=== PATIENT | female | born 1960 | race Caucasian/White ===

== ENCOUNTER 2019-02-09 19:39 | Emergency (ER) | payer OTHER ==
[~2019-02-09] VITALS: Ht 152.4 cm; Wt 81.7 kg
[2019-02-09 20:25] LABS: BASOPHILS ABSOLUTE AUTO 0.08 K/mm3 (0.00-0.23); BASOPHILS PERCENT AUTO 1 % (0-2); EOSINOPHILS ABSOLUTE AUTO 0.17 K/mm3 (0.00-0.68); EOSINOPHILS PERCENT AUTO 2 % (0-6); Hemoglobin 15.6 g/dL (11.5-16.0); IMMATURE GRAN ABSOLUTE AUTO 0.03 K/mm3 (0.00-0.10); IMMATURE GRAN PERCENT AUTO 0 % (0-1); LYMPHOCYTES ABSOLUTE AUTO 1.53 K/mm3 (0.84-5.20); LYMPHOCYTES PERCENT AUTO 15 % (21-46); MONOCYTES ABSOLUTE AUTO 0.91 K/mm3 (0.16-1.47); MONOCYTES PERCENT AUTO 9 % (4-13); Mean Corpuscular HGB 31.6 pg (26.0-34.0); Mean Corpuscular HGB Conc 32.5 g/dL (31.5-36.5); Mean Corpuscular Volume 97 fL (80-100); Mean Platelet Volume 9.8 fL (9.1-12.4); NEUTROPHILS ABSOLUTE AUTO 7.85 K/mm3 (1.96-9.15); NEUTROPHILS PERCENT AUTO 74 % (41-73); Platelet Count 229 K/mm3 (150-400); RDW Coefficient Variation 13.2 % (11.7-14.2); Red Blood Cell Count 4.94 M/mm3 (3.80-5.20); White Blood Cell Count 10.57 K/mm3 (4.00-11.30)
[2019-02-09 20:38] LABS: Alanine Aminotransfer (ALT/SGP 36 U/L (12-78); Albumin, Blood 3.8 g/dL (3.4-5.0); Alk Phos 86 U/L (50-136); Anion Gap 8 mmol/L (6-16); Aspartate Aminotrans (AST/SGOT 30 U/L (12-37); Bilirubin, Total 0.3 mg/dL (0.1-1.0); Blood Urea Nitrogen 12 mg/dL (8-24); Bun/Creatinine Ratio 15.9 (12.0-20.0); CO2, Blood 26 mmol/L (21-32); Calcium, Blood 9.2 mg/dL (8.5-10.1); Chloride, Blood 106 mmol/L (98-108); Creatinine, Blood 0.76 mg/dL (0.40-1.00); Glomerular Filtration Rate >60 (60-); Glucose, Blood 133 mg/dL (70-99); Potassium, Blood 4.1 mmol/L (3.5-5.5); Sodium, Blood 140 mmol/L (136-145); Total Protein, Blood 7.8 g/dL (6.4-8.2)
[2019-02-09 20:51] LABS: Source, Urine Clean Catch
[2019-02-09 20:54] LABS: Bilirubin, Urine Neg (Neg); Blood, Urine 5+ (Neg); Glucose Qualitative, Urine Neg (Neg); Ketones, Urine 1+ (Neg); Leukocyte Esterase, Urine 2+ (Neg); Nitrite, Urine Neg (Neg); Protein, Urine 2+ (Neg); Urobilinogen, Urine NORM (Normal)
[2019-02-09 20:57] LABS: Appearance, Urine Cloudy (Clear); Color, Urine Red (P-Yellow)
[2019-02-09 21:10] LABS: Amorphous Light (0-Heavy); Bacteria Few /hpf; Red Blood Cells, Urine TNTC /hpf (0-2); Squamous Epithelial Cells Not Seen /hpf (Few)
[2019-02-09] MEDS ORDERED: Flomax0.4 MG PO (22:47)
[2019-02-09] MEDS ORDERED: Percocet 7.5-31 EACH PO (22:47)
[2019-02-09] MEDS ORDERED: CEFP200 PO (22:47)
== END 2019-02-09 23:30 | disposition home or self-care (01) ==
LOC: ER 19:39
PROVIDERS: Emergency Medicine
DX: N13.2 Hydronephrosis with renal and ureteral calculous obstruction (principal); R00.0 Tachycardia, unspecified; F17.210 Nicotine dependence, cigarettes, uncomplicated; Z88.5 Allergy status to narcotic agent; Z88.8 Allergy status to other drugs, medicaments and biological substances
CPT/HCPCS: 74177; 80053; 81001; 83690; 85025; 87086; 93005; 93010; 96361; 96365-59; 96375; 99284-25; A9270; J0696; J1885; J2405; J3010; J7030; P9612; Q9967

== ENCOUNTER 2019-02-11 09:49 | Emergency (ER) | payer OTHER ==
[~2019-02-11] VITALS: Ht 152.4 cm; Wt 77.1 kg
[~2019-02-11 09:49] MED LIST: CEFP200 PO; Flomax0.4 MG PO; Percocet 7.5-31 EACH PO
[2019-02-11] MEDS ORDERED: IBUP400 PO (10:37)
[2019-02-11] MEDS ORDERED: Percocet 5-3251 EACH PO (10:37)
[2019-02-11] MEDS ORDERED: Zofran8 MG PO (10:37)
== END 2019-02-11 10:57 | disposition home or self-care (01) ==
LOC: ER 09:49
DX: N13.2 Hydronephrosis with renal and ureteral calculous obstruction (principal); F17.210 Nicotine dependence, cigarettes, uncomplicated; Z88.5 Allergy status to narcotic agent; Z88.8 Allergy status to other drugs, medicaments and biological substances; Z79.899 Other long term (current) drug therapy
CPT/HCPCS: 99283

== ENCOUNTER 2020-06-13 09:32 | Emergency (ER) | payer OTHER ==
[~2020-06-13] VITALS: Ht 152.4 cm; Wt 90.7 kg
[~2020-06-13 09:32] MED LIST changes: +IBUP400 PO; +Percocet 5-3251 EACH PO; +Zofran8 MG PO
[2020-06-13 10:32] LABS: BASOPHILS ABSOLUTE AUTO 0.07 K/mm3 (0.00-0.23); BASOPHILS PERCENT AUTO 1 % (0-2); EOSINOPHILS ABSOLUTE AUTO 0.09 K/mm3 (0.00-0.68); EOSINOPHILS PERCENT AUTO 1 % (0-6); Hematocrit 45.9 % (33.0-51.0); Hemoglobin 15.2 g/dL (11.5-16.0); IMMATURE GRAN ABSOLUTE AUTO 0.03 K/mm3 (0.00-0.10); IMMATURE GRAN PERCENT AUTO 0 % (0-1); LYMPHOCYTES ABSOLUTE AUTO 1.47 K/mm3 (0.84-5.20); LYMPHOCYTES PERCENT AUTO 20 % (21-46); MONOCYTES ABSOLUTE AUTO 0.66 K/mm3 (0.16-1.47); MONOCYTES PERCENT AUTO 9 % (4-13); Mean Corpuscular HGB 31.1 pg (26.0-34.0); Mean Corpuscular HGB Conc 33.1 g/dL (31.5-36.5); Mean Corpuscular Volume 94 fL (80-100); Mean Platelet Volume 9.2 fL (9.1-12.4); NEUTROPHILS PERCENT AUTO 69 % (41-73); Platelet Count 237 K/mm3 (150-400); RDW Standard Deviation 48.4 fL (35.1-46.3); Red Blood Cell Count 4.89 M/mm3 (3.80-5.20); White Blood Cell Count 7.52 K/mm3 (4.00-11.30)
[2020-06-13 10:52] LABS: Alanine Aminotransfer (ALT/SGP 123 U/L (12-78); Albumin, Blood 3.7 g/dL (3.4-5.0); Alk Phos 84 U/L (50-136); Anion Gap 6 mmol/L (6-16); Aspartate Aminotrans (AST/SGOT 98 U/L (12-37); Bilirubin, Total 0.6 mg/dL (0.1-1.0); Blood Urea Nitrogen 12 mg/dL (8-24); CO2, Blood 26 mmol/L (21-32); Calcium, Blood 9.2 mg/dL (8.5-10.1); Chloride, Blood 108 mmol/L (98-108); Globulin, Blood 3.8 g/dL (2.2-4.0); Glomerular Filtration Rate >60 (60-); Glucose, Blood 105 mg/dL (70-99); Sodium, Blood 140 mmol/L (136-145); Total Protein, Blood 7.5 g/dL (6.4-8.2); Troponin I 0.058 ng/mL (0.000-0.040)
[2020-06-13 11:42] LABS: Influenza A, PCR Negative (NEGATIVE); Influenza B, PCR Negative (NEGATIVE); Resp Syncytial Virus, PCR Negative (NEGATIVE); SARS-Cov-2 (COVID-19) PCR, MMC Negative (NEGATIVE)
[2020-06-13] MEDS ORDERED: AZIT250 PO (13:56)
[2020-06-13] MEDS ORDERED: AMLO5 PO (13:56)
== END 2020-06-13 14:31 | disposition home or self-care (01) ==
LOC: ER 09:32
PROVIDERS: Emergency Medicine
DX: J44.1 Chronic obstructive pulmonary disease with (acute) exacerbation (principal); I10 Essential (primary) hypertension; F17.210 Nicotine dependence, cigarettes, uncomplicated; Z20.822 Contact with and (suspected) exposure to COVID-19
CPT/HCPCS: 0241U; 36415; 71045; 80053; 83880; 84484; 85025; 93005; 93010; 94640; 96374; 99284-25; A9270; J0360

== ENCOUNTER 2020-07-03 17:02 | Inpatient (IN) | payer OTHER, SELFPAY ==
[~2020-07-03] VITALS: Ht 160 cm; Wt 83.0 kg
[~2020-07-03 17:02] MED LIST changes: +AMLO5 PO; +AZIT250 PO
[2020-07-03 17:28] LABS: BASOPHILS ABSOLUTE AUTO 0.11 K/mm3 (0.00-0.23); BASOPHILS PERCENT AUTO 1 % (0-2); EOSINOPHILS ABSOLUTE AUTO 0.19 K/mm3 (0.00-0.68); EOSINOPHILS PERCENT AUTO 2 % (0-6); Hematocrit 50.4 % (33.0-51.0); IMMATURE GRAN ABSOLUTE AUTO 0.03 K/mm3 (0.00-0.10); IMMATURE GRAN PERCENT AUTO 0 % (0-1); LYMPHOCYTES ABSOLUTE AUTO 3.78 K/mm3 (0.84-5.20); LYMPHOCYTES PERCENT AUTO 42 % (21-46); MONOCYTES ABSOLUTE AUTO 1.16 K/mm3 (0.16-1.47); MONOCYTES PERCENT AUTO 13 % (4-13); Mean Corpuscular HGB 31.6 pg (26.0-34.0); Mean Corpuscular HGB Conc 31.7 g/dL (31.5-36.5); Mean Corpuscular Volume 100 fL (80-100); Mean Platelet Volume 9.6 fL (9.1-12.4); NEUTROPHILS ABSOLUTE AUTO 3.78 K/mm3 (1.96-9.15); NEUTROPHILS PERCENT AUTO 42 % (41-73); Platelet Count 260 K/mm3 (150-400); RDW Coefficient Variation 15.1 % (11.7-14.2); RDW Standard Deviation 54.9 fL (35.1-46.3); Red Blood Cell Count 5.06 M/mm3 (3.80-5.20); White Blood Cell Count 9.05 K/mm3 (4.00-11.30)
[2020-07-03 17:35] LABS: PCO2 Arterial 50.9 mmHg (35-45); PO2 Arterial 80.9 mmHg (80-100); pH Blood Arterial 7.26 (7.35-7.45)
[2020-07-03 17:47] LABS: Alanine Aminotransfer (ALT/SGP 132 U/L (12-78); Albumin, Blood 3.7 g/dL (3.4-5.0); Albumin/Globulin Ratio 0.8 (0.8-1.8); Alk Phos 103 U/L (50-136); Anion Gap 6 mmol/L (6-16); Aspartate Aminotrans (AST/SGOT 99 U/L (12-37); Bilirubin, Total 0.6 mg/dL (0.1-1.0); Blood Urea Nitrogen 10 mg/dL (8-24); Bun/Creatinine Ratio 17.1 (12.0-20.0); CO2, Blood 23 mmol/L (21-32); Calcium, Blood 9.2 mg/dL (8.5-10.1); Chloride, Blood 108 mmol/L (98-108); Creatinine, Blood 0.58 mg/dL (0.40-1.00); Globulin, Blood 4.5 g/dL (2.2-4.0); Glomerular Filtration Rate >60 (60-); Glucose, Blood 210 mg/dL (70-99); Potassium, Blood 4.2 mmol/L (3.5-5.5); Sodium, Blood 137 mmol/L (136-145); Total Protein, Blood 8.2 g/dL (6.4-8.2); Troponin I 0.019 ng/mL (0.000-0.040)
[2020-07-03] MEDS ORDERED: AMLODIPINE BESYL5 MG PO (18:11)
[2020-07-03 18:25] LABS: Influenza A, PCR NEGATIVE (NEGATIVE); Influenza B, PCR NEGATIVE (NEGATIVE); Resp Syncytial Virus, PCR NEGATIVE (NEGATIVE); SARS-Cov-2 (COVID-19) PCR, MMC NEGATIVE (NEGATIVE)
[2020-07-03 19:57] LABS: Source, Urine Catheter
[2020-07-03 20:03] LABS: Appearance, Urine Turbid (Clear); Bilirubin, Urine Neg (Neg); Blood, Urine 1+ (Neg); Color, Urine Amber (P-Yellow); Glucose Qualitative, Urine Neg (Neg); Ketones, Urine 1+ (Neg); Leukocyte Esterase, Urine 1+ (Neg); Nitrite, Urine Pos (Neg); Protein, Urine 3+ (Neg); Specific Gravity, Urine 1.025 (1.003-1.022); Urobilinogen, Urine NORM (Normal)
[2020-07-03 20:07] LABS: Amorphous Heavy (0-Heavy); Bacteria Many /hpf; Red Blood Cells, Urine 0-2 /hpf (0-2); Squamous Epithelial Cells Few /hpf (Few)
[2020-07-04 00:56] LABS: BASOPHILS ABSOLUTE AUTO 0.01 K/mm3 (0.00-0.23); BASOPHILS PERCENT AUTO 0 % (0-2); EOSINOPHILS PERCENT AUTO 0 % (0-6); Hematocrit 45.2 % (33.0-51.0); Hemoglobin 14.6 g/dL (11.5-16.0); IMMATURE GRAN ABSOLUTE AUTO 0.02 K/mm3 (0.00-0.10); IMMATURE GRAN PERCENT AUTO 0 % (0-1); LYMPHOCYTES ABSOLUTE AUTO 0.39 K/mm3 (0.84-5.20); LYMPHOCYTES PERCENT AUTO 7 % (21-46); MONOCYTES ABSOLUTE AUTO 0.07 K/mm3 (0.16-1.47); MONOCYTES PERCENT AUTO 1 % (4-13); Mean Corpuscular HGB 32.1 pg (26.0-34.0); Mean Corpuscular HGB Conc 32.3 g/dL (31.5-36.5); Mean Corpuscular Volume 99 fL (80-100); Mean Platelet Volume 8.9 fL (9.1-12.4); NEUTROPHILS PERCENT AUTO 91 % (41-73); Platelet Count 219 K/mm3 (150-400); RDW Coefficient Variation 14.9 % (11.7-14.2); RDW Standard Deviation 55.3 fL (35.1-46.3); Red Blood Cell Count 4.55 M/mm3 (3.80-5.20); White Blood Cell Count 5.69 K/mm3 (4.00-11.30)
[2020-07-04 01:16] LABS: Anion Gap 7 mmol/L (6-16); Blood Urea Nitrogen 14 mg/dL (8-24); Bun/Creatinine Ratio 20.7 (12.0-20.0); CO2, Blood 24 mmol/L (21-32); Chloride, Blood 108 mmol/L (98-108); Creatinine, Blood 0.68 mg/dL (0.40-1.00); Glomerular Filtration Rate >60 (60-); Glucose, Blood 193 mg/dL (70-99); Potassium, Blood 4.1 mmol/L (3.5-5.5); Sodium, Blood 139 mmol/L (136-145); Troponin I 0.035 ng/mL (0.000-0.040)
--- NOTE | 2020-07-04 07:46 | NUR ---
ADMIT NOTE/SHIFT SUMMARY PATIENT ADMITTED FROM THE ER EARLIER THIS SHIFT. PATIENT ON BIPAP AT TIME OF ADMIT. PATIENT PLEASENT AND COOPERATIVE. PATIENT REPORTS THAT HER BREATHING IS BETTER THAN WHEN SHE ARRIVED AT THE ER. PATIENT WAS SETTLED IN AND ORIENTED TO THE ROOM, UNIT, AND CALL LIGHT. PATIENT ABLE TO BE OFF THE BIPAP FOR APPROX 1.5 HOURS SHORTLY AFTER ADMIT AND WAS PLACED ON 4L O2. PATIENT THEN WENT BACK ON THE BIPAP AND APPEARED TO SLEEP WELL THROUGHOUT MOST OF THE REST OF THE NIGHT. PATIENT REMOVED FROM BIPAP AT ABOUT 0600 THIS MORNING PER PATIENT REQUEST AND HAS BEEN OFF SINCE. PATIENT ON 4L O2 WHEN OFF BIPAP. CONTINUOUS BIOX IN PLACE. REPORT GIVEN TO ZABRINA GEIGER.
--- NOTE | 2020-07-04 16:54 | NUR ---
SHIFT SUMMARY PT TRANSFERRED TO UNIT FROM PCU AT APPROXIMATELY 1230. PT IS AOX4. PT DENIES PAIN, N/V, SOB. PT IS INDEPENDENT IN ROOM. PT IS CURRENTLY ON ROOM AIR WITH SATS IN THE 88-92%. PT HAD IMAGING DONE WHILE ON THE PCU UNIT. PT HAS A GOOD APPETITE THIS JOVANNY. PT HAD A VISITOR TODAY. PT IS IN BED, CALL LIGHT IN REACH, BED IN LOW POSITION.
--- NOTE | 2020-07-05 04:15 | NUR ---
SHIFT SUMMARY NO ACUTE CHANGES THIS SHIFT, NO C/O ANY KIND, SLEPT T/O THE NIGHT & SLEEPING AT THIS TIME, CALL LIGHT IN REACH, WILL CONT TO MONITOR UNTIL REPORT GIVEN TO DAY RN.
[2020-07-05 04:42] LABS: BASOPHILS ABSOLUTE AUTO 0.03 K/mm3 (0.00-0.23); BASOPHILS PERCENT AUTO 0 % (0-2); EOSINOPHILS ABSOLUTE AUTO 0.01 K/mm3 (0.00-0.68); EOSINOPHILS PERCENT AUTO 0 % (0-6); Hematocrit 45.8 % (33.0-51.0); Hemoglobin 14.7 g/dL (11.5-16.0); IMMATURE GRAN ABSOLUTE AUTO 0.03 K/mm3 (0.00-0.10); IMMATURE GRAN PERCENT AUTO 0 % (0-1); LYMPHOCYTES ABSOLUTE AUTO 1.48 K/mm3 (0.84-5.20); LYMPHOCYTES PERCENT AUTO 15 % (21-46); MONOCYTES ABSOLUTE AUTO 0.86 K/mm3 (0.16-1.47); MONOCYTES PERCENT AUTO 9 % (4-13); Mean Corpuscular HGB Conc 32.1 g/dL (31.5-36.5); Mean Corpuscular Volume 100 fL (80-100); Mean Platelet Volume 8.9 fL (9.1-12.4); NEUTROPHILS ABSOLUTE AUTO 7.54 K/mm3 (1.96-9.15); NEUTROPHILS PERCENT AUTO 76 % (41-73); Platelet Count 232 K/mm3 (150-400); RDW Coefficient Variation 15.1 % (11.7-14.2); RDW Standard Deviation 55.4 fL (35.1-46.3); Red Blood Cell Count 4.59 M/mm3 (3.80-5.20); White Blood Cell Count 9.95 K/mm3 (4.00-11.30)
[2020-07-05 05:08] LABS: Alanine Aminotransfer (ALT/SGP 93 U/L (12-78); Albumin/Globulin Ratio 0.8 (0.8-1.8); Alk Phos 77 U/L (50-136); Anion Gap 5 mmol/L (6-16); Aspartate Aminotrans (AST/SGOT 54 U/L (12-37); Bilirubin, Total 0.6 mg/dL (0.1-1.0); Blood Urea Nitrogen 21 mg/dL (8-24); CO2, Blood 28 mmol/L (21-32); Calcium, Blood 9.3 mg/dL (8.5-10.1); Chloride, Blood 107 mmol/L (98-108); Creatinine, Blood 0.72 mg/dL (0.40-1.00); Globulin, Blood 3.9 g/dL (2.2-4.0); Glomerular Filtration Rate >60 (60-); Glucose, Blood 104 mg/dL (70-99); Sodium, Blood 140 mmol/L (136-145); Total Protein, Blood 6.9 g/dL (6.4-8.2)
[2020-07-05] MEDS ORDERED: ACET325 PO (15:14)
[2020-07-05] MEDS ORDERED: AZIT250 PO (15:16)
[2020-07-05] MEDS ORDERED: FOLI1 PO (15:17)
[2020-07-05] MEDS ORDERED: DILT120ERA PO (15:17)
[2020-07-05] MEDS ORDERED: LOSA25 PO (15:17)
[2020-07-05] MEDS ORDERED: B-1100 M1 PO (15:21)
[2020-07-05] MEDS ORDERED: AMOCLA500 PO (15:22)
[2020-07-05] MEDS ORDERED: VISBIOME PROBI1 EACH PO (15:22)
[2020-07-05] MEDS ORDERED: ALBU90OI INH (15:22)
[2020-07-05] MEDS ORDERED: FURO40 PO (15:23)
[2020-07-05] MEDS ORDERED: FLUTICASONE-SA1 EAC1 INH (15:23)
--- NOTE | 2020-07-05 16:29 | NUR ---
DISCHARGE NOTE PATIENT DISCHARGED TO HOME. PATIENT ALERT AND ORIENTED THIS SHIFT. PATIENT WITHOUT RESPIRATORY DISTRESS THIS SHIFT. PATIENT UP INDEPENDENTLY IN THE ROOM THIS SHIFT. PATIENT HAD AN O2 EVALUATION FOR ACTIVITY PRIOR TO DISCHARGE, NO O2 NEEDS AT THIS TIME. PATIENT'S DAUGHTER IN THE ROOM PRIOR TO DISCHARGE. PATIENT AND DAUGHTER PROVIDED WITH DISCHARGE INSTRUCTIONS, NO QUESTIONS AT THIS TIME. PATIENT DRESSED INDEPENDENTLY. IVs REMOVED PRIOR TO DISCHARGE. PATIENT TO VEHICLE VIA WHEELCHAIR BY NURSE.
== END 2020-07-05 16:24 | disposition home or self-care (01) | DRG 280 ==
LOC: ER 17:02 → PCU 20:11 → MEDS 20:11 → PCU 21:20 → MEDS 07-04 12:33
PROVIDERS: Emergency Medicine; Internal Medicine; ADMIT Family Medicine
PROC: 5A09457 Assistance with Respiratory Ventilation, 24-96 Consecutive Hours, Continuous Positive Airway Pressure (ICD-10-PCS; principal; 2020-07-03)
DX: I11.0 Hypertensive heart disease with heart failure (principal); I50.31 Acute diastolic (congestive) heart failure; I21.A1 Myocardial infarction type 2; J96.01 Acute respiratory failure with hypoxia; J96.02 Acute respiratory failure with hypercapnia; J44.1 Chronic obstructive pulmonary disease with (acute) exacerbation; E87.2 Acidosis; I16.1 Hypertensive emergency; J81.1 Chronic pulmonary edema; Z20.822 Contact with and (suspected) exposure to COVID-19; F10.10 Alcohol abuse, uncomplicated; R82.71 Bacteriuria; I34.0 Nonrheumatic mitral (valve) insufficiency; F17.210 Nicotine dependence, cigarettes, uncomplicated
CPT/HCPCS: 0241U; 36415; 36600; 51702; 71045; 71260; 74177; 80048; 80053; 81001; 82803; 83036; 83605; 83690; 83880; 84145; 84443; 84484; 85025; 87077; 87086; 87186; 93005; 93010; 93306; 94660; 94762; 96374-59; 99291-25; A9270; J0696; J1650; J1940; J7050; Q9967

== ENCOUNTER → 2021-09-26 | Outpatient (CLI) | payer OTHER ==
[~2021-09-26] MED LIST changes: +ACET325 PO; +ALBU90OI INH; +AMLODIPINE BESYL5 MG PO; +AMOCLA500 PO; +B-1100 M1 PO; +DILT120ERA PO; +FLUTICASONE-SA1 EAC1 INH; +FOLI1 PO; +FURO40 PO; +LOSA25 PO; +VISBIOME PROBI1 EACH PO
[2021-09-28 16:08] LABS: HPV 16 Negative (Negative); HPV 18 Negative (Negative); HPV OTHER HR TYPES Negative (Negative)
== END | disposition home or self-care (01) ==
LOC: LAB SHORT 12:45 → LAB 12:45
PROVIDERS: Family Medicine
DX: Z01.419 Encounter for gynecological examination (general) (routine) without abnormal findings (principal)
CPT/HCPCS: 87624; G0145

== ENCOUNTER 2022-10-20 17:09 | Inpatient (IN) | payer OTHER ==
[~2022-10-20] VITALS: Ht 152.4 cm; Wt 65.5 kg
[~2022-10-20 17:09] MED LIST changes: +ELIQUIS5 M2 PO; +LOSA50 PO; +OMEP20ER; +PANT40 PO; +PRAVASTATIN SOD10 MG PO; +SUCR1 PO; +TRAZ50 PO
[2022-10-20 21:33] LABS: BASOPHILS ABSOLUTE AUTO 0.06 K/mm3 (0.00-0.23); BASOPHILS PERCENT AUTO 1 % (0-2); EOSINOPHILS ABSOLUTE AUTO 0.14 K/mm3 (0.00-0.68); EOSINOPHILS PERCENT AUTO 2 % (0-6); Hematocrit 40.6 % (33.0-51.0); Hemoglobin 14.4 g/dL (11.5-16.0); IMMATURE GRAN ABSOLUTE AUTO 0.03 K/mm3 (0.00-0.10); IMMATURE GRAN PERCENT AUTO 0 % (0-1); LYMPHOCYTES ABSOLUTE AUTO 1.75 K/mm3 (0.84-5.20); LYMPHOCYTES PERCENT AUTO 23 % (21-46); MONOCYTES ABSOLUTE AUTO 1.07 K/mm3 (0.16-1.47); MONOCYTES PERCENT AUTO 14 % (4-13); Mean Corpuscular HGB 33.7 pg (26.0-34.0); Mean Corpuscular HGB Conc 35.5 g/dL (31.5-36.5); Mean Corpuscular Volume 95 fL (80-100); Mean Platelet Volume 8.7 fL (9.1-12.4); NEUTROPHILS ABSOLUTE AUTO 4.54 K/mm3 (1.96-9.15); NEUTROPHILS PERCENT AUTO 60 % (41-73); Platelet Count 219 K/mm3 (150-400); RDW Coefficient Variation 13.2 % (11.7-14.2); RDW Standard Deviation 46.3 fL (35.1-46.3); Red Blood Cell Count 4.27 M/mm3 (3.80-5.20); White Blood Cell Count 7.59 K/mm3 (4.00-11.30)
[2022-10-20 21:51] LABS: Albumin, Blood 3.3 g/dL (3.4-5.0); Albumin/Globulin Ratio 0.8 (0.8-1.8); Bilirubin, Total 0.3 mg/dL (0.1-1.0); Bun/Creatinine Ratio 15.2 (12.0-20.0); Creatinine, Blood 0.46 mg/dL (0.40-1.00); Globulin, Blood 3.9 g/dL (2.2-4.0); Potassium, Blood 3.8 mmol/L (3.5-5.5); Total Protein, Blood 7.2 g/dL (6.4-8.2)
[2022-10-21 00:38] LABS: International Normalized Ratio 1.28; Prothrombin Time Results 13.3 Sec (9.7-11.5)
[2022-10-21] MEDS ORDERED: TIOT18 INH (02:11)
[2022-10-21 02:44] VITALS: BP 171/90
--- NOTE | 2022-10-21 03:27 | NUR ---
CODEINE ALLERGY PT STATES SHE HAS HAD NORCO AND VICODIN BEFORE WILL NO COMPLICATIONS.
--- NOTE | 2022-10-21 04:02 | NUR ---
SHIFT SUMMARY PT ADMISSION DONE, RESTING IN BED, NS @ 75ML/HR. FACIAL SWELLING STILL PRESENT, BUT PT STATES BETTER PAIN CONTROL. BED IN LOWEST POSITION , CALL LIGHT WITHIN REACH. REPORT GIVEN TO TWIN GEIGER.
[2022-10-21 04:47] LABS: BASOPHILS ABSOLUTE AUTO 0.05 K/mm3 (0.00-0.23); BASOPHILS PERCENT AUTO 1 % (0-2); EOSINOPHILS ABSOLUTE AUTO 0.11 K/mm3 (0.00-0.68); EOSINOPHILS PERCENT AUTO 2 % (0-6); Hematocrit 38.7 % (33.0-51.0); Hemoglobin 13.7 g/dL (11.5-16.0); IMMATURE GRAN ABSOLUTE AUTO 0.03 K/mm3 (0.00-0.10); IMMATURE GRAN PERCENT AUTO 1 % (0-1); LYMPHOCYTES ABSOLUTE AUTO 1.22 K/mm3 (0.84-5.20); LYMPHOCYTES PERCENT AUTO 19 % (21-46); MONOCYTES PERCENT AUTO 19 % (4-13); Mean Corpuscular HGB 33.7 pg (26.0-34.0); Mean Corpuscular HGB Conc 35.4 g/dL (31.5-36.5); Mean Corpuscular Volume 95 fL (80-100); Mean Platelet Volume 8.5 fL (9.1-12.4); NEUTROPHILS ABSOLUTE AUTO 3.85 K/mm3 (1.96-9.15); NEUTROPHILS PERCENT AUTO 60 % (41-73); Platelet Count 203 K/mm3 (150-400); RDW Coefficient Variation 13.2 % (11.7-14.2); RDW Standard Deviation 46.4 fL (35.1-46.3); Red Blood Cell Count 4.07 M/mm3 (3.80-5.20); White Blood Cell Count 6.46 K/mm3 (4.00-11.30)
--- NOTE | 2022-10-21 05:03 | NUR ---
ASSUMED CARE REPORT TAKEN TO ASSUME CARE OF PT. PT IS RESTING IN BED APPEARS TO BE SLEEP. NO DISTRESS NOTED. PT MEDICATED FOR PAIN SHORTLY BEFORE I RECEIVED REPORT. IVF INFUSING, CALL LIGHT WITHIN REACH.
[2022-10-21 05:06] LABS: Albumin, Blood 3.2 g/dL (3.4-5.0); Bilirubin, Total 0.7 mg/dL (0.1-1.0); Creatinine, Blood 0.56 mg/dL (0.40-1.00); Globulin, Blood 3.2 g/dL (2.2-4.0); Potassium, Blood 3.7 mmol/L (3.5-5.5); Total Protein, Blood 6.4 g/dL (6.4-8.2)
[2022-10-21 05:51] VITALS: BP 149/63
[2022-10-21 07:35] VITALS: BP 164/87
[2022-10-21 14:59] VITALS: BP 154/99
--- NOTE | 2022-10-21 18:22 | NUR ---
SHIFT SUMMARY PT A&OX4, VSS/RA, YESSICA PO, VOIDING, AMB W/FWW AND SBA/BED ALARM ON, PAIN MANAGED WITH TORADOL, ABX PER EMAR. WILL REPORT TO ONCOMING NOC RN.
[2022-10-21 20:01] VITALS: BP 130/79
[2022-10-22 04:31] LABS: BASOPHILS ABSOLUTE AUTO 0.01 K/mm3 (0.00-0.23); BASOPHILS PERCENT AUTO 0 % (0-2); EOSINOPHILS PERCENT AUTO 0 % (0-6); Hematocrit 39.5 % (33.0-51.0); Hemoglobin 14.1 g/dL (11.5-16.0); IMMATURE GRAN ABSOLUTE AUTO 0.06 K/mm3 (0.00-0.10); IMMATURE GRAN PERCENT AUTO 1 % (0-1); LYMPHOCYTES ABSOLUTE AUTO 0.64 K/mm3 (0.84-5.20); LYMPHOCYTES PERCENT AUTO 8 % (21-46); MONOCYTES ABSOLUTE AUTO 0.49 K/mm3 (0.16-1.47); MONOCYTES PERCENT AUTO 6 % (4-13); Mean Corpuscular HGB 33.9 pg (26.0-34.0); Mean Corpuscular HGB Conc 35.7 g/dL (31.5-36.5); Mean Corpuscular Volume 95 fL (80-100); Mean Platelet Volume 8.9 fL (9.1-12.4); NEUTROPHILS PERCENT AUTO 86 % (41-73); Platelet Count 207 K/mm3 (150-400); RDW Coefficient Variation 12.8 % (11.7-14.2); RDW Standard Deviation 44.6 fL (35.1-46.3); Red Blood Cell Count 4.16 M/mm3 (3.80-5.20)
[2022-10-22 04:52] LABS: Albumin, Blood 3.1 g/dL (3.4-5.0); Albumin/Globulin Ratio 0.8 (0.8-1.8); Bilirubin, Total 0.6 mg/dL (0.1-1.0); Bun/Creatinine Ratio 24.5 (12.0-20.0); Calcium, Blood 9.3 mg/dL (8.5-10.1); Creatinine, Blood 0.49 mg/dL (0.40-1.00); Globulin, Blood 3.7 g/dL (2.2-4.0); Potassium, Blood 3.8 mmol/L (3.5-5.5); Total Protein, Blood 6.8 g/dL (6.4-8.2)
[2022-10-22 06:17] VITALS: BP 172/109
[2022-10-22 06:45] VITALS: BP 171/99
[2022-10-22 07:21] VITALS: BP 178/102
--- NOTE | 2022-10-22 07:43 | NUR ---
PT HAD UNEVENTFUL NIGHT. CIWA 7, PT MEDICATED PER EMAR W/NOTED EFFECT. SWELLING TO RIGHT JAW MILD, PT REP SHE IS ABLE TO OPEN MOUTH WIDER THIS AM, REP MOUTH LESS PAINFUL. PT DECLINED NEED FOR PAIN MEDS. PT REPORT FEELING ANXIOUS AND AGITATED AFTER SOLUMEDEROL GIVEN, REP FEELIND LESS ANXIOUS THIS AM. PT UP OOB W/FWW+SBA, IS STEADY WHEN UP; BED ALARM ON FOR SAFETY. IV ABX CONT PER ORDERS.
[2022-10-22] MEDS ORDERED: CHLO25 PO (13:33)
[2022-10-22] MEDS ORDERED: HYDR1TAB94 PO (13:34)
[2022-10-22] MEDS ORDERED: CLIN150 PO (13:34)
[2022-10-22] MEDS ORDERED: METPRE4 PO (13:35)
--- NOTE | 2022-10-22 13:57 | NUR ---
DISCHARGE PT AMBULATING WELL IN ROOM. DENIES PAIN. REPORTS JAW MOVEMENT MUCH IMPROVED. ABLE TO EAT WITHOUT DIFFICULTY. PT VERY ANXIOUS WHILE HERE PT VERY ADAMANT ABOUT DISCHARGING TODAY. PT PULLED IV PRIOR TO DISCHARGE. PRESCRIPTIONS SENT TO [facility] AND HARD SCRIPTS SENT WITH PATIENT.
== END 2022-10-22 13:59 | disposition home or self-care (01) | DRG 158 ==
LOC: ER 17:09 → SURS 23:30
PROVIDERS: Internal Medicine; Student in an Organized Health Care Education/Training Program; ADMIT Internal Medicine
DX: K04.7 Periapical abscess without sinus (principal); I48.20 Chronic atrial fibrillation, unspecified; L02.01 Cutaneous abscess of face; L03.211 Cellulitis of face; I50.32 Chronic diastolic (congestive) heart failure; J45.909 Unspecified asthma, uncomplicated; K02.9 Dental caries, unspecified; F41.9 Anxiety disorder, unspecified; J44.9 Chronic obstructive pulmonary disease, unspecified; I11.0 Hypertensive heart disease with heart failure; E78.5 Hyperlipidemia, unspecified; F10.20 Alcohol dependence, uncomplicated; K21.9 Gastro-esophageal reflux disease without esophagitis; G47.00 Insomnia, unspecified; F17.210 Nicotine dependence, cigarettes, uncomplicated; Z98.890 Other specified postprocedural states; Z86.010 Personal history of colon polyps; Z88.5 Allergy status to narcotic agent; Z88.8 Allergy status to other drugs, medicaments and biological substances; Z79.01 Long term (current) use of anticoagulants; Z79.899 Other long term (current) drug therapy; Z87.19 Personal history of other diseases of the digestive system
CPT/HCPCS: 36415; 41800; 70487; 80053; 85025; 85610; 94640; 94664; 94760; 96365-59; 96375-59; 99285-25; A9270; J0295; J0696; J1885; J2060; J2930; J3010; J3411; J7030; Q9967; S0077

== ENCOUNTER 2022-10-31 23:46 | Inpatient (IN) | payer OTHER ==
[~2022-10-31] VITALS: Ht 152.4 cm; Wt 68.1 kg
[~2022-10-31 23:46] MED LIST changes: +CHLO25 PO; +CLIN150 PO; +HYDR1TAB94 PO; +METPRE4 PO; +TIOT18 INH
[2022-11-01] VITALS (9 sets, daily range): BP systolic 101–127; BP diastolic 51–110
[2022-11-01 00:28] LABS: BASOPHILS ABSOLUTE AUTO 0.06 K/mm3 (0.00-0.23); BASOPHILS PERCENT AUTO 1 % (0-2); EOSINOPHILS PERCENT AUTO 3 % (0-6); Hematocrit 41.6 % (33.0-51.0); Hemoglobin 14.5 g/dL (11.5-16.0); IMMATURE GRAN ABSOLUTE AUTO 0.02 K/mm3 (0.00-0.10); IMMATURE GRAN PERCENT AUTO 0 % (0-1); LYMPHOCYTES ABSOLUTE AUTO 2.24 K/mm3 (0.84-5.20); LYMPHOCYTES PERCENT AUTO 29 % (21-46); MONOCYTES ABSOLUTE AUTO 1.13 K/mm3 (0.16-1.47); MONOCYTES PERCENT AUTO 15 % (4-13); Mean Corpuscular HGB Conc 34.9 g/dL (31.5-36.5); Mean Corpuscular Volume 98 fL (80-100); Mean Platelet Volume 8.9 fL (9.1-12.4); NEUTROPHILS ABSOLUTE AUTO 4.04 K/mm3 (1.96-9.15); NEUTROPHILS PERCENT AUTO 53 % (41-73); Platelet Count 208 K/mm3 (150-400); RDW Coefficient Variation 14.2 % (11.7-14.2); RDW Standard Deviation 50.9 fL (35.1-46.3); Red Blood Cell Count 4.26 M/mm3 (3.80-5.20); White Blood Cell Count 7.69 K/mm3 (4.00-11.30)
[2022-11-01] MEDS ORDERED: B-1100 M1 PO (00:38)
[2022-11-01] MEDS ORDERED: FLUTICASONE-SA1 EAC9 INH (00:39)
[2022-11-01] MEDS ORDERED: DILTIAZEM 24HR180 M3 PO (00:39)
[2022-11-01 00:57] LABS: Calcium, Blood 8.8 mg/dL (8.5-10.1); Creatinine, Blood 0.69 mg/dL (0.40-1.00); Magnesium, Blood 2.1 mg/dL (1.6-2.4); Potassium, Blood 3.8 mmol/L (3.5-5.5)
[2022-11-01 05:03] LABS: BASOPHILS ABSOLUTE AUTO 0.06 K/mm3 (0.00-0.23); BASOPHILS PERCENT AUTO 1 % (0-2); EOSINOPHILS ABSOLUTE AUTO 0.18 K/mm3 (0.00-0.68); EOSINOPHILS PERCENT AUTO 3 % (0-6); Hematocrit 40.7 % (33.0-51.0); Hemoglobin 14.2 g/dL (11.5-16.0); IMMATURE GRAN ABSOLUTE AUTO 0.03 K/mm3 (0.00-0.10); IMMATURE GRAN PERCENT AUTO 0 % (0-1); LYMPHOCYTES ABSOLUTE AUTO 2.42 K/mm3 (0.84-5.20); LYMPHOCYTES PERCENT AUTO 33 % (21-46); MONOCYTES ABSOLUTE AUTO 1.01 K/mm3 (0.16-1.47); MONOCYTES PERCENT AUTO 14 % (4-13); Mean Corpuscular HGB 34.1 pg (26.0-34.0); Mean Corpuscular HGB Conc 34.9 g/dL (31.5-36.5); Mean Corpuscular Volume 98 fL (80-100); Mean Platelet Volume 8.8 fL (9.1-12.4); NEUTROPHILS ABSOLUTE AUTO 3.54 K/mm3 (1.96-9.15); NEUTROPHILS PERCENT AUTO 49 % (41-73); Platelet Count 199 K/mm3 (150-400); RDW Coefficient Variation 14.3 % (11.7-14.2); RDW Standard Deviation 51.6 fL (35.1-46.3); Red Blood Cell Count 4.16 M/mm3 (3.80-5.20); White Blood Cell Count 7.24 K/mm3 (4.00-11.30)
[2022-11-01 05:44] LABS: Bun/Creatinine Ratio 13.9 (12.0-20.0); Calcium, Blood 8.7 mg/dL (8.5-10.1); Creatinine, Blood 0.65 mg/dL (0.40-1.00); Potassium, Blood 4.4 mmol/L (3.5-5.5)
--- NOTE | 2022-11-01 06:04 | NUR ---
SHIFT SUMMARY PT IS A NEW ADMIT THIS MORNING FOR AFIB/AFLUTTER RVR. SHE IS A&OX4, CAN MAKE HER NEEDS KNOWN, AND FOLLOWS QUESTIONS APPROPRAITELY. THIS PT IS ON A CARDIZEM GTT @ 5 AND HER HR IS 90'S-110'S. WHEN SHE MOVES AROUND SHE HER HR CAN JUMP TO THE 150'S. SHE DENIES ANY ANGINA OR CHEST PRESSURE. SHE IS ON RA W/O SOB, AND HER SP02 >93%. PT STATES SHE IS FEELING ALOT BETTER SINCE COMING TO THE HOSPITAL AND IS ALREADY ASKING ABOUT DISCHARGE. PT REPORTED THAT SHE HAS BEEN HAVING BLACK LOOSE STOOLS FOR ABOUT A WEEK AND HER PCP STOPPED HER ELIQUIS TWO DAYS AGO AND STARTED HER ON IMODIUM. PT STATES SHE HAS HAD FIVE LOOSE BOWEL MOVMENTS YESTERDAY. STOOL SAMPLE ORDER OBTAINED. SHE IS A DAILY DRINKER ABOUT 12 BEERS/DAY, W/ HER LAST DRINK LAST NIGHT. HER CIWA IS CURRENTLY 1. BED ALARM IS ON, BED IS IN LOW, AND CALL LIGHT IS IN REACH. SEE NOTES FOR ANY UPDATES.
--- NOTE | 2022-11-01 09:00 | NUR ---
PT SUSTAINING IN THE 110'S. REINITIATED HER CARDIZEM DRIP AT 5. TELE AWARE AND PT EDUCATED ON REINITATION.
--- NOTE | 2022-11-01 09:57 | NUR ---
CARDIZEM TITRATED UP TO 10ML/HR. PT UP AND ACTIVE IN ROOM
--- NOTE | 2022-11-01 10:45 | NUR ---
ASSUMPTION OF CARE AT THIS TIME
--- NOTE | 2022-11-01 10:47 | NUR ---
Patient is lying in bed and alert. She immediately becomes tearful when I introduce myself. She tells me that she wants to go home. We unpack this concern and disscuss the importance of becoming well before she she leaves the hospital. She explains about the grief sabino has from the of her SO of 17 yrs ( 5 yrs ago). She talks about an estrangement from one of her three grown children and connection to God through music and nature. She is tearful again when she describes her craving for a cigarette and is struggle that it is for her at the time of the visit. (I mention this to patient's BROILER CHEF OR COOK because her RN is not available at that time). I provide grief support, anxiety containment, therapeutic listening and prayer. Patient responds well and shows signs of an elevated mood and greater peace. I will continue to remain available to patient and family.
--- NOTE | 2022-11-01 14:27 | NUR ---
UPDATE WHILE THIS RN ON LUNCH PT BEGAME AGITATED AND PULLED OFF TELEMETRY. ANGRY AND WANTING TO GO HOME. CIWA 3. MD NOTIFIED OF PT'S REQUEST. PA AT BEDSIDE AT THIS TIME CONSULTING WITH PT. PLAN TO GIVE ATIVAN FOR ANXIETY PER MD. WILL CONT TO MONITOR.
--- NOTE | 2022-11-01 18:09 | NUR ---
SHIFT SUMMARY PT ALERT AND ORIENTED X 4. PT AGITATED AND THREATENING TO LEAVE AMA. PA AT BEDSIDE TO DISCUSS PT STATUS. SEE EMAR. HR NOT WELL CONTROLLED WITH PO MEDICATIONS. CARDIZEM GTT RESUMED. SEE EHR FOR SETTINGS. HR AFIB 110'S-140'S. CIWA STABLE AND A 3. PT REPORTS NO WD SYMPTOMS. PT MEDICATED WITH ONE MG OF ATIVAN PER MD ORDER FOR ANXIETY AND AGITATION. NO CP OR PRESSURE REPORTED. BP STABLE. PT SBA TO BATHROOM. CALL SHADI OVERTON. WILL CONT TO MONITOR UNTIL REPORT GIVEN TO NIGHTSHIFT RN.
--- NOTE | 2022-11-01 21:58 | NUR ---
ASSUMED CARE @ 1915 PATIENT SITTING IN BED QUIETLY. CARDIZEM INF @ 5MG/HR. MONITOR SHOWS AFIB FLUTTER WITH RATE 70'S. BP STABLE. PATIENT DENIES PAIN, BUT STATES SHE FEELS DEPRESSED AND WANTS TO GO HOME. EXPLAINED TO PATIENT THAT SHE HAS A RIGHT TO LEAVE, BUT PROVIDED EDUCATION ON WHY SHE SHOULD STAY. ULTIMATELY, THE PATIENT AGREED TO STAY. CARDIZEM TURNED OFF AT 2030. RATE REMAINS 71BPM. PATIENT VERBALIZED FEELING ANXIOUS AND REQUESTED ATIVAN TO HELP CALM ANXIETY AND AGITATION. CALL MADE TO DR. COLMENARES AND ONE TIME ORDER OBTAINED FOR ATIVAN 1MG IV.
[2022-11-02 04:08] LABS: BASOPHILS ABSOLUTE AUTO 0.05 K/mm3 (0.00-0.23); BASOPHILS PERCENT AUTO 1 % (0-2); EOSINOPHILS ABSOLUTE AUTO 0.14 K/mm3 (0.00-0.68); EOSINOPHILS PERCENT AUTO 3 % (0-6); Hematocrit 41.7 % (33.0-51.0); Hemoglobin 14.4 g/dL (11.5-16.0); IMMATURE GRAN ABSOLUTE AUTO 0.01 K/mm3 (0.00-0.10); IMMATURE GRAN PERCENT AUTO 0 % (0-1); LYMPHOCYTES ABSOLUTE AUTO 1.45 K/mm3 (0.84-5.20); LYMPHOCYTES PERCENT AUTO 28 % (21-46); MONOCYTES ABSOLUTE AUTO 0.85 K/mm3 (0.16-1.47); MONOCYTES PERCENT AUTO 17 % (4-13); Mean Corpuscular HGB 33.9 pg (26.0-34.0); Mean Corpuscular HGB Conc 34.5 g/dL (31.5-36.5); Mean Corpuscular Volume 98 fL (80-100); Mean Platelet Volume 8.7 fL (9.1-12.4); NEUTROPHILS ABSOLUTE AUTO 2.65 K/mm3 (1.96-9.15); NEUTROPHILS PERCENT AUTO 51 % (41-73); Platelet Count 203 K/mm3 (150-400); RDW Coefficient Variation 14.2 % (11.7-14.2); RDW Standard Deviation 51.4 fL (35.1-46.3); Red Blood Cell Count 4.25 M/mm3 (3.80-5.20); White Blood Cell Count 5.15 K/mm3 (4.00-11.30)
[2022-11-02 04:32] VITALS: BP 98/73
[2022-11-02 04:49] LABS: Albumin, Blood 2.9 g/dL (3.4-5.0); Albumin/Globulin Ratio 0.9 (0.8-1.8); Bilirubin, Total 0.6 mg/dL (0.1-1.0); Bun/Creatinine Ratio 17.4 (12.0-20.0); Calcium, Blood 9.3 mg/dL (8.5-10.1); Creatinine, Blood 0.63 mg/dL (0.40-1.00); Globulin, Blood 3.4 g/dL (2.2-4.0); Total Protein, Blood 6.3 g/dL (6.4-8.2)
--- NOTE | 2022-11-02 05:06 | NUR ---
SHIFT SUMMARY PATIENT SLEPT THROUGHOUT SHIFT AFTER RECEIVING ATIVAN 1MG IV FOR ANXIETY. PATIENT DENIED ANXIETY ON REASSESSMENTS. CIWA'S 0-3. CARDIZEM WAS OFF FOR APPROXIMATELY 8 HOURS WITH RATE MAINTAINING BELOW 110. CARDIZEM RESTARTED WHEN HR ABOVE 120. BP REMAINS STABLE. NO OTHER CHANGES DURING SHIFT.
[2022-11-02 07:53] VITALS: BP 136/86
[2022-11-02 10:50] VITALS: BP 137/85
[2022-11-02] MEDS ORDERED: SERT50 PO (10:57)
[2022-11-02] MEDS ORDERED: Naltrexone HCl50 MG PO (10:57)
--- NOTE | 2022-11-02 11:36 | NUR ---
DISCHARGE SUMMARY PT A/O X4, COOPERATIVE WITH CARE. ANXIOUS TO DISCHARGE T/O THE MORNING. PT OFF DILTIAZEM DRIP DURING AM REPORT THIS MORNING DUE TO MEDICATION RUNNING OUT. HR IN THE 90-100'S, SO THIS RN LEFT DILTIAZEM DRIP OFF. PT HR STABLE T/O MAJORITY OF MORNING WITH OCCASIONAL INCREASE WITH ACTIVITY UP TO THE 130'S. PT DENIED CP OR SOB. PT REQUESTING TO AMBULATE AND TOLERATED IT WELL. SHE REMAINED ASYMPTOMATIC AFTER AMBULATING. SPO2 >92% ON RA. LUNGS WERE CLEAR T/O. UPON DISCHARGE PT REQUESTED TO AMBULATE OUT OF ROOM. SHE WAS ACCOMPANIED BY S/O. PT VERBALIZED UNDERSTANDING OF DISCHARGE INSTRUCTIONS. PT D/C'D @ 2267.
== END 2022-11-02 11:38 | disposition home or self-care (01) | DRG 310 ==
LOC: ER 23:46 → PCU 23:47 → ER 23:47 → PCU 11-01 03:55
PROVIDERS: Family Medicine; Student in an Organized Health Care Education/Training Program; ADMIT Student in an Organized Health Care Education/Training Program
PROC: HZ2ZZZZ Detoxification Services for Substance Abuse Treatment (ICD-10-PCS; principal; 2022-11-01)
DX: I48.92 Unspecified atrial flutter (principal); J44.9 Chronic obstructive pulmonary disease, unspecified; F41.9 Anxiety disorder, unspecified; I50.9 Heart failure, unspecified; F10.229 Alcohol dependence with intoxication, unspecified; I11.0 Hypertensive heart disease with heart failure; F17.210 Nicotine dependence, cigarettes, uncomplicated; Z98.890 Other specified postprocedural states; Z79.01 Long term (current) use of anticoagulants; Z79.899 Other long term (current) drug therapy; Z88.5 Allergy status to narcotic agent; Z88.8 Allergy status to other drugs, medicaments and biological substances; Z86.010 Personal history of colon polyps
CPT/HCPCS: 36415; 71045; 80048; 80053; 83735; 83880; 84484; 85025; 93005; 93010; 94762; 96365; 96366; 96376; 99285-25; A9270; J1650; J2060; J3411; J7050

== ENCOUNTER 2023-01-02 18:03 | Emergency (ER) | payer OTHER | END 2023-01-02 22:03 | disposition home or self-care (01) | LOC: ER 18:03 | DX: R10.11 Right upper quadrant pain (principal); J44.9 Chronic obstructive pulmonary disease, unspecified; I11.0 Hypertensive heart disease with heart failure; I50.9 Heart failure, unspecified; Z88.5 Allergy status to narcotic agent; Z79.899 Other long term (current) drug therapy; Z79.01 Long term (current) use of anticoagulants; Z20.822 Contact with and (suspected) exposure to COVID-19; Z87.891 Personal history of nicotine dependence ==

== ENCOUNTER 2023-04-19 16:19 | Emergency (ER) | payer MEDICARE ==
[~2023-04-19] VITALS: Ht 152.4 cm; Wt 63.5 kg
[~2023-04-19 16:19] MED LIST changes: +ALMACONE SUSPE355 ML PO; +DILTIAZEM 24HR180 M3 PO; +FLUTICASONE-SA1 EAC9 INH; +MULVITA PO; +Naltrexone HCl50 MG PO; +SERT50 PO; +WARF1
[2023-04-19] MEDS ORDERED: ONDA4 PO (19:32)
[2023-04-19 19:45] VITALS: BP 120/64
== END 2023-04-19 19:57 | disposition home or self-care (01) ==
LOC: ER 16:19
DX: M53.3 Sacrococcygeal disorders, not elsewhere classified (principal); Z88.8 Allergy status to other drugs, medicaments and biological substances; Z88.5 Allergy status to narcotic agent; Z79.899 Other long term (current) drug therapy; Z79.01 Long term (current) use of anticoagulants; J44.9 Chronic obstructive pulmonary disease, unspecified; I48.92 Unspecified atrial flutter; Z87.891 Personal history of nicotine dependence
CPT/HCPCS: 72220; 99284-25; A9270

== ENCOUNTER → 2024-06-24 | Outpatient (CLI) | payer MEDICARE, OTHER ==
[~2024-06-24] MED LIST changes: +ONDA4 PO
[2024-07-07 10:09] LABS: HPV HIGH RISK BY TMA Not Detected; HPV SOURCE Cervical
== END ==
LOC: LAB SHORT 13:56 → LAB 13:56
PROVIDERS: Family Medicine
DX: Z01.419 Encounter for gynecological examination (general) (routine) without abnormal findings (principal)
CPT/HCPCS: 87624; G0123